=== PATIENT | female | born 1975 | race African-American/Black ===

== ENCOUNTER 2020-03-28 20:09 | Emergency (ER) | payer OTHER ==
[~2020-03-28] VITALS: Ht 160 cm; Wt 77.1 kg
[2020-03-28] MEDS ORDERED: TEGRETOL200 MG (20:45)
[2020-03-29] MEDS ORDERED: VISTARIL50 MG PO (03:06)
[2020-03-29] MEDS ORDERED: ZYNCOF 20-400120 ML PO (03:06)
[2020-03-30] MEDS ORDERED: MEDROLPACK PO (11:56)
== END 2020-03-29 03:23 | disposition home or self-care (01) ==
LOC: ER 20:09 → EDBD 20:25 → ER 20:25
DX: B34.9 Viral infection, unspecified (principal); J21.9 Acute bronchiolitis, unspecified; R06.02 Shortness of breath; F41.8 Other specified anxiety disorders; Z03.818 Encounter for observation for suspected exposure to other biological agents ruled out

== ENCOUNTER 2020-03-30 08:23 | Emergency (ER) | payer OTHER ==
[~2020-03-30] VITALS: Ht 157.5 cm; Wt 77.1 kg
[~2020-03-30 08:23] MED LIST: TEGRETOL200 MG; VISTARIL50 MG PO; ZYNCOF 20-400120 ML PO
[2020-03-30] MEDS ORDERED: MEDROLPACK PO (11:56)
== END 2020-03-30 11:58 | disposition home or self-care (01) ==
LOC: ER 08:23 → EDBD 08:25 → ER 11:58
DX: B34.9 Viral infection, unspecified (principal); Z03.818 Encounter for observation for suspected exposure to other biological agents ruled out; R05 Cough

== ENCOUNTER 2020-10-09 22:01 | Emergency (ER) | payer OTHER ==
[~2020-10-09] VITALS: Ht 160 cm; Wt 63.5 kg
[~2020-10-09 22:01] MED LIST changes: +MEDROLPACK PO
[2020-10-10] MEDS ORDERED: KETO10TA2 PO (02:10)
== END 2020-10-10 03:00 ==
LOC: ER 22:01
DX: S50.02XA Contusion of left elbow, initial encounter (principal); W20.8XXA Other cause of strike by thrown, projected or falling object, initial encounter; Y93.89 Activity, other specified; Y92.512 Supermarket, store or market as the place of occurrence of the external cause; Y99.8 Other external cause status

== ENCOUNTER 2020-10-17 20:59 | Emergency (ER) | payer OTHER ==
[~2020-10-17] VITALS: Ht 157.5 cm; Wt 0.5 kg
[~2020-10-17 20:59] MED LIST changes: +KETO10TA2 PO
[2020-10-17] MEDS ORDERED: NEURONTIN300 MG (21:06)
[2020-10-18] MEDS ORDERED: PROTONIX40 MG PO (06:15)
[2020-10-18] MEDS ORDERED: ZOFRAN8 MG PO ×2 (06:15→06:16)
[2020-10-18] MEDS ORDERED: PEPCID40 MG PO (06:15)
== END 2020-10-18 06:22 | disposition home or self-care (01) ==
LOC: ER 20:59
DX: K29.70 Gastritis, unspecified, without bleeding (principal)

== ENCOUNTER 2021-02-17 23:14 | Emergency (ER) | payer OTHER ==
[~2021-02-17] VITALS: Ht 160 cm; Wt 77.1 kg
[~2021-02-17 23:14] MED LIST changes: +NEURONTIN300 MG; +PEPCID40 MG PO; +PROTONIX40 MG PO; +ZOFRAN8 MG PO
[2021-02-18] MEDS ORDERED: ZYNCOF 20-400120 ML PO (05:27)
[2021-02-18] MEDS ORDERED: ALBUTEROL2.5 MG/3 M IH (05:27)
== END 2021-02-18 05:59 ==
LOC: ER 23:14
DX: J20.9 Acute bronchitis, unspecified (principal); R50.9 Fever, unspecified

== ENCOUNTER 2021-03-17 16:54 | Emergency (ER) | payer OTHER ==
[~2021-03-17] VITALS: Ht 160 cm; Wt 77.1 kg
[~2021-03-17 16:54] MED LIST changes: +ALBUTEROL2.5 MG/3 M IH
[2021-03-17] MEDS ORDERED: LYRICA50 MG PO (17:09)
[2021-03-17] MEDS ORDERED: ALAVERT10 M1 PO (17:09)
[2021-03-17] MEDS ORDERED: ZYRTEC10 MG PO (20:29)
[2021-03-17] MEDS ORDERED: MUCINEX DM ER1 EAC1 PO (20:29)
[2021-03-17] MEDS ORDERED: LEVALBUTER1.25 MG/0. IH (20:29)
[2021-03-17] MEDS ORDERED: MOXIFLOXACIN H400 MG PO (20:29)
[2021-03-17] MEDS ORDERED: MEDROLPACK PO (20:29)
== END 2021-03-17 20:51 | disposition home or self-care (01) ==
LOC: ER 16:54
DX: J20.9 Acute bronchitis, unspecified (principal); J06.9 Acute upper respiratory infection, unspecified; B34.9 Viral infection, unspecified; Z20.828 Contact with and (suspected) exposure to other viral communicable diseases